=== PATIENT | female | born 1975 | race Caucasian/White ===

== ENCOUNTER 2024-06-03 05:33 | Emergency (ER) | payer MEDICARE, SELFPAY ==
[2024-06-03 05:42] VITALS: BP 155/79; PULSE 100; RESP 20; TEMP 37; O2SAT 96
--- NOTE | 2024-06-03 06:28 | XR_ITS ---
Examination: PA lateral chest 2 views Technique: Upright PA lateral chest 2 views Exam date and time: June 03, 2024 0703 hrs. Indications: Chest pain beginning one week ago. Findings: Normal heart size. Lungs are clear. The osseous structures are intact Impression: No active disease
--- NOTE | 2024-06-03 06:30 | PD.EDRME ---
Rapid Medical Screening Exam E Arrival date/time: 06/03/24 0600 This is a 48-year-old female who presents to the emergency department with multiple complaints of nausea vomiting, and chest pain with shortness of breath with activity. I have greeted and performed a focused initial assessment of this patient. Initial appropriate labs ordered at this time. A comprehensive ED assessment and evaluation of the patient and analysis of all test and completion of medical decision making process will be conducted by additional ED provider. Chief Complaint: Nausea/Vomiting/Diarrhea Time Seen by Provider: 06/03/24 06:12 Vital signs: Vital Signs Temperature 98.6 F 06/03/24 05:42 Pulse Rate 100 06/03/24 05:42 Respiratory Rate 20 06/03/24 05:42 Blood Pressure 155/79 H 06/03/24 05:42 Pulse Oximetry (%) 96 06/03/24 05:42 Oxygen Delivery Method Room Air 06/03/24 05:42
[2024-06-03] MEDS: ONDANSETRON ODT 4 MG TABRAP PO (06:47)
[2024-06-03 07:24] LABS: Collection Type, Urine Clean Catch
[2024-06-03 07:35] LABS: Bilirubin,Urine Negative (Negative); Blood,Urine Negative (Negative); Clarity,Urine Clear (Clear/Hazy); Color,Urine Lt-Yellow (Lt Yel-Yel); Glucose, Urine Negative (Negative); Hyaline Casts,Urine 1 /hpf (0-1); Ketones,Urine Negative (Negative); Leukocyte Esterase,Urine Negative (Negative); Nitrite,Urine Negative (Negative); Protein,Urine Trace (Neg - Trace); RBC,Urine 2 /hpf (0-3); Specific Gravity,Urine 1.016 (1.001-1.035); Squamous Epithelial Cell,Urine 5 /hpf (0-5); Urobilinogen,Urine Negative mg/dL (0.0-1.0); WBC,Urine 3 /hpf (0-5)
[2024-06-03 07:41] LABS: HCG Qualitative,Urine Negative
[2024-06-03 08:00] VITALS: BP 139/93; PULSE 90; RESP 14; TEMP 36.8; O2SAT 94
[2024-06-03 08:11] LABS: Alanine Aminotransferase 14 U/L (10-49); Albumin, Serum 4.5 gm/dL (3.5-5.0); Albumin/Globulin Ratio 1.9 (1.2-2.2); Alkaline Phosphatase 120 U/L (46-116); Anion Gap 8 (7-16); Aspartate Amino Transferase 21 U/L (0-34); BUN/Creatinine Ratio 12 Ratio (12-20); Bilirubin,Total 0.2 mg/dL (0.3-1.2); Blood Urea Nitrogen 12 mg/dL (9-23); Calcium 10.1 mg/dL (8.3-10.6); Calcium (Corrected) 10.1 mg/dL (8.5-10.1); Carbon Dioxide 27.9 mMol/L (20.0-31.0); Chloride 102 mMol/L (98-107); Globulin 2.4 gm/dL (2.3-3.5); Glucose 89 mg/dL (74-106); Lipase 32 U/L (12-53); Osmolality,Calculated 274 (275-295); Potassium 4.5 mMol/L (3.4-5.1); Sodium 138 mMol/L (136-145); Total Protein 6.9 gm/dL (5.7-8.2); Troponin I < 0.002 ng/mL (0.0-0.045); eGFR > 60 See Note
[2024-06-03 08:36] LABS: Basophils % (Auto) 0 % (0-2.5); Eosinophils # (Auto) 0.2 Thou/mm3 (0.0-0.5); Eosinophils % (Auto) 2 % (0-10); Hematocrit 42.8 % (36.0-46.0); Hemoglobin 14.3 g/dL (12.0-16.0); Immature Granulocytes % (Auto) 0 % (0-0); Immature Granulocytes Auto 0.02 Thou/mm3 (0.00-0.00); Lymphocytes # (Auto) 3.3 Thou/mm3 (1.0-4.8); Lymphocytes % (Auto) 33 % (10-50); Mean Corpuscular HGB Conc 33.4 g/dl (31.0-37.0); Mean Corpuscular Hemoglobin 29.7 pg (25.0-35.0); Mean Corpuscular Volume 89 fL (80-100); Monocytes # (Auto) 0.6 Thou/mm3 (0.0-0.8); Monocytes % (Auto) 7 % (0-12); Neutrophils # (Auto) 5.7 Thou/mm3 (1.8-7.7); Neutrophils % (Auto) 58 % (37-80); Nucleated Red Blood Cell % 0 /100 WBC (0); Platelet Count 170 Thou/mm3 (140-440); RDW Standard Deviation 42.5 fL (36.4-46.3); Red Blood Count 4.82 Miln/mm3 (4.00-5.20); White Blood Count 9.8 Thou/mm3 (3.6-11.0)
--- NOTE | 2024-06-03 09:00 | PD.EDABDPN ---
ED Abdominal Pain RME/HPI General Chief Complaint: Nausea/Vomiting/Diarrhea Stated complaint: Lightheaed, out of breath, Vomiting Time seen by provider: 06/03/24 06:12 Arrival date/time: 06/03/24 05:33 RME / HPI RME / HPI narrative: 06/03/24 0600 This is a 48-year-old female who presents to the emergency department with multiple complaints of nausea vomiting, and chest pain with shortness of breath with activity. I have greeted and performed a focused initial assessment of this patient. Initial appropriate labs ordered at this time. A comprehensive ED assessment and evaluation of the patient and analysis of all test and completion of medical decision making process will be conducted by additional ED provider. DR. WERNER MAIN ED EVALUATION 48 year old female with history of peptic reflux disease presents to the ED for evaluation of epigastric abdominal pain beginning 5 days ago. Pain described as burning in sensation located most to epigastric region that moves up to her chest that is worse at night. Accompanied by decreased appetite, adding things just don't taste well , nausea, and feeling short of breath. Mentioned she has taken up to 20 Tums a day for her symptoms. Denies any burping. Denies fevers or chills. Related Data Allergies Allergy/AdvReac Type Severity Reaction Status Date / Time No Known Allergies Allergy Verified 06/03/24 05:36 Review of Systems Review of Systems Narrative Review of Systems: Gen: No fever, no chills, no weight loss EYES: No discharge, no visual changes, no pain HEENT: No ear pain, no congestion, no sore throat PULM: + shortness of breath, no cough, no congestion CV: + chest pain, no dyspnea on exertion, no palpitations, no chest tightness GI: + nausea, no vomiting, no diarrhea, + pain, no constipation : No frequency, no urgency,? no dysuria Musc/skel: No joint pain, no back pain Skin: No rash, no ecchymosis, no lesions Neuro: No weakness, no headache Past Medical History Past Medical History CARDIAC: Negative Congestive Heart Failure RESPIRATORY: Positive Asthma; Negative Chronic Obstructive Pulmonary Disease (COPD) GENITOURINARY: Negative Renal Disease ENDOCRINE: Negative Diabetes Mellitus Type 1 or Diabetes Mellitus Type 2 Social History SMOKING STATUS: Never smoker ED Exam Narrative Physical exam: GENERAL APPEARANCE: AxOx4, no obvious distress, nontoxic appearing HEENT: NC, AT. MMM. EOMI, clear conjunctiva, oropharynx clear. NECK: Supple without lymphadenopathy. No stiffness or restricted ROM. HEART: Normal rate and regular rhythm, normal S1/S1, no m/r/g LUNGS: CTAB, moving air well. No crackles or wheezes are heard. ABDOMEN: Soft, tenderness over epigastrium, nondistended with good bowel sounds heard. BACK: No midline C/T/L spine pain or deformity, No CVAT, no obvious deformity. EXTREMITIES: Without cyanosis, clubbing or edema. MUSCULOSKELETAL: FROM of all major joints, no chest tenderness NEUROLOGICAL: Grossly nonfocal. Alert and oriented, moving all 4 extremities. CN not formally tested but appear grossly intact. Skin: Warm and dry without any rash. Course Quality Measures none Orders Category Date Time Status XR chest 2V Stat Exams 06/03/24 06:28 Completed CBC Stat Lab 06/03/24 07:44 Completed Comprehensive Metabolic Panel Stat Lab 06/03/24 07:44 Completed HCG Qualitative,Urine Stat Lab 06/03/24 06:51 Completed Lipase Stat Lab 06/03/24 07:44 Completed Troponin I Stat Lab 06/03/24 07:44 Completed Urinalysis Stat Lab 06/03/24 06:51 Completed Lidocaine 2% Viscous [Xylocaine 2% Viscous] Med 06/03/24 09:02 Discontinued 10 ml PO X1 ONE Ondansetron Odt [Zofran Odt] Med 06/03/24 06:38 Discontinued 4 mg PO X1 ONE mg Hyd/Al Hyd/Yen Susp [Maalox Susp] Med 06/03/24 09:02 Discontinued 30 ml PO X1 ONE Reevaluation(s) Reevaluation #1: Patient remains clinically stable throughout the emergency department visit. We reviewed all the results, analysis, and treatment plans. Patient is amenable to discharge. Strict return precautions were outlined. Patient was discharged in stable condition. Time: 08:50 Vital Signs Vital signs: Vital Signs Temperature 98.6 F 06/03/24 05:42 Pulse Rate 100 06/03/24 05:42 Respiratory Rate 20 06/03/24 05:42 Blood Pressure 155/79 H 06/03/24 05:42 Pulse Oximetry (%) 96 06/03/24 05:42 Oxygen Delivery Method Room Air 06/03/24 05:42 Pulse ox is 96% on room air which is adequate. Abdominal Pain MDM MDM Narrative MDM Narrative:: Shelley Martinez am scribing for and in the presence of Dr. Werner. Patient data External records reviewed:: [facility] previous records (Per EMR review, no previous visits for review ) Clinical information provided by:: patient Social determinants that could affect healthcare access:: none Patient has the following chronic illnesses:: Peptic ulcer disease How is presenting disease/condition affected by chronic disease/condition?: exacerbated by Evaluation data The following diagnostics were reviewed and interpreted by me:: lab results and radiology exam(s) Lab and/or radiology exams considered but not ordered:: None Interpretation Summary: Ordering Physician: [facility] Date of Service: 06/03/24 Procedure(s): XR chest 2V Accession Number(s): [id number] cc: John Mills MD; Ab Newby MD; [facility]ee~ Examination: PA lateral chest 2 views Technique: Upright PA lateral chest 2 views Exam date and time: June 03, 2024 0703 hrs. Indications: Chest pain beginning one week ago. Findings: Normal heart size. Lungs are clear. The osseous structures are intact Impression: No active disease Dictated By: Ab Newby MD Signed By: <Electronically signed by Ab Newby MD in OV> 06/03/24 0717 Medications / Prescriptions Medications or Prescriptions considered but not ordered:: None Medication administrations:: Medication Administration History Discontinued Medications Al Hydrox/Mg Hydrox/Simethicone (Mg Hyd/Al Hyd/Yen (Maalox Reg) Susp 30 Ml Udc) 30 ml PO X1 ONE Stop: 06/03/24 09:03 Lidocaine HCl (Lidocaine Viscous 2% 15 Ml Udc) 10 ml PO X1 ONE Stop: 06/03/24 09:03 Ondansetron HCl (Ondansetron Odt 4 Mg Tabrap) 4 mg PO X1 ONE; Protocol Stop: 06/03/24 06:39 Last Admin: 06/03/24 06:47 Dose: 4 mg Documented By: SF See above Consultations Consultation(s) initiated? (list below): No Diagnosis Differential diagnosis abdominal pain: abdominal pain, gastroenteritis and other (Gastritis, peptic reflux disease ) Most likely diagnosis given after review of the tests above:: Peptic reflux disease Admission Indicated Admission indicated?: not indicated Admission Request Was there a request for admission?: No Disposition Plan Disposition Plan: Discharge Discharge Attestation Discharge Attestation: The patient and all family members were given an opportunity to ask questions and understood the discharge instructions. Discharge instructions specifically effects, indications for sooner follow up or return to the emergency department, and the expected course of current diagnosis. Patient condition: Stable Discharge Plan Plan Patient Disposition: HOME (Self Care) Prescriptions/Referrals Referrals: John Mills MD [Primary Care Provider] - In 1 week Problem List Clinical Impression: Peptic reflux disease Patient/Caregiver Discharge Instructions Education Materials: ED GERD (Adult) Additional Instructions: You can take [id number] famotidine (Pepcid) 20 mg twice a day for the next 14 days. Follow-up with your primary care doctor in 10 to 14 days for recheck. Consider lifestyle changes including stress management, and eating a healthy, balanced diet cutting down on processed carbohydrates, grease, and spices. You can return to Emergency Department sooner symptoms worsen or if he notes any new, concerning issues. Print Language: Swedish Stand Alone Forms: Loren Award Info., Patient Portal Info Letter
[2024-06-03] MEDS: LIDOCAINE VISCOUS 2% 15 ML UDC 10 ML PO (09:19)
[2024-06-03] MEDS: MG HYD/AL HYD/SIME (Maalox Reg) SUSP 30 ML UDC PO (09:19)
[2024-06-03 09:25] VITALS: BP 129/73; PULSE 90; RESP 16; TEMP 36.6; O2SAT 95
== END 2024-06-03 09:29 | disposition home or self-care (01) ==
PROVIDERS: Nurse Practitioner Primary Care; Emergency Provider Emergency Medicine; PCP Family Medicine
DX: K21.9 Gastro-esophageal reflux disease without esophagitis (principal); R07.9 Chest pain, unspecified
CPT/HCPCS: 36415; 71046; 80053; 81001; 81025; 83690; 84484; 85025; 87400; 87811; 99283; J3490; Q0162; A9270